=== PATIENT | female | born 1995 | race Two or more races ===

== ENCOUNTER 2018-04-18 02:52 | Emergency (ER) | payer OTHER ==
--- NOTE | 2018-04-18 03:33 | EDPHY ---
H & P Stated Complaint: pelvic pain, heavy bleeding Time Seen by Provider: 04/18/18 03:25 HPI/ROS: Chief Complaint: Pelvic pain, vaginal bleeding HPI: 22-year-old G0 woman who is presenting with left-sided pelvic pain which has been going on for the last couple of weeks. She she has seen her primary care doctor who has scheduled an ultrasound for 2 days to evaluate for possible ovarian cyst. She has had negative tests at home. She started having some vaginal bleeding yesterday. It is as heavy as a heavy stay of her normal cycle. Her last menstrual cycle was the of last month. No other vaginal discharge. Some urinary frequency. No fevers or chills. No back pain. No nausea or vomiting. Pain right now is about a 4/10. She did take some ibuprofen earlier with some relief. ROS: 10 systems were reviewed and were negative except those elements noted in the HPI. PMH: Bipolar disorder Social History: No smoking, occasional alcohol, occasional marijuana Family History: non-contributory Physical Exam: Gen: Awake, Alert, No Distress HEENT: Nose: no rhinorrhea Eyes: PERRLA, EOMI Mouth: Moist mucosa Neck: Supple, no JVD Chest: nontender, lungs clear to auscultation Heart: S1, S2 normal, no murmur Abd: Soft, mild left adnexal tenderness, no guarding Back: no CVA tenderness, no midline tenderness Ext: no edema, non-tender Skin: no rash Neuro: CN II-XII intact, Sensation grossly intact, Strength 5/5 in bilateral upper and lower extremities - Personal History LMP (Females 10-55): 15-21 Days Ago Current Tetanus Diphtheria and Acellular Pertussis (TDAP): Yes - Medical/Surgical History Hx Asthma: No Hx Chronic Respiratory Disease: No Hx Diabetes: No Hx Cardiac Disease: No Hx Renal Disease: No Hx Cirrhosis: No Hx Alcoholism: No Hx HIV/AIDS: No Hx Splenectomy or Spleen Trauma: No Other PMH: bipolar, IBS - Social History Smoking Status: Never smoked Constitutional: Initial Vital Signs Temperature (C) 36.7 C 04/18/18 02:58 Heart Rate 72 04/18/18 02:58 Respiratory Rate 20 04/18/18 02:58 Blood Pressure 131/83 H 04/18/18 02:58 O2 Sat (%) 98 04/18/18 02:58 O2 Delivery Mode Room Air Allergies/Adverse Reactions: Penicillins Allergy (Verified 04/18/18 02:57) Home Medications: Medication Instructions Recorded Abilify 04/18/18 Trileptal 04/18/18 Medical Decision Making - Diagnostics Imaging Results: Pelvic ultrasound shows a known large 7 cm left ovary which is heterogeneous. There is good catheter blood flow but some decrease in central blood flow. Findings consistent with hemorrhagic cyst versus much less likely torsion. Study interpreted by Dr. Villa. Imaging: Discussed imaging studies w/ call centre supervisor Radiologist ED Course/Re-evaluation: 22-year-old woman presenting with left pelvic pain for the last 2 weeks with pelvic bleeding. She is not . Ultrasound is consistent with left hemorrhagic cyst. I have discussed with JERRICA Cardenas. He agrees that this is consistent with a hemorrhagic cyst. He is recommending outpatient follow-up. He can range to get her seen in the office shortly. I have discussed this with the patient. She is in agreement. She has been provided with discharge instructions and follow-up with OBGYN. - Data Points Laboratory Results: Laboratory Results 04/18/18 03:10 04/18/18 03:10 04/18/18 04/18/18 04/18/18 03:50 03:10 03:10 WBC RBC Hgb Hct MCV MCH MCHC RDW Plt Count MPV Neut % (Auto) Lymph % (Auto) [place] % (Auto) Eos % (Auto) Baso % (Auto) Nucleat RBC Rel Count Absolute Neuts (auto) Absolute Lymphs (auto) Absolute Monos (auto) Absolute Eos (auto) Absolute Basos (auto) Absolute Nucleated RBC Immature Gran % Immature Gran # Sodium 140 mEq/L mEq/L (135-145) Potassium 4.5 mEq/L mEq/L (3.3-5.0) Chloride 107 mEq/L mEq/L (97-110) Carbon Dioxide 25 mEq/l mEq/l (22-31) Anion Gap 8 mEq/L mEq/L (8-16) BUN 18 mg/dL mg/dL (7-23) Creatinine 0.7 mg/dL mg/dL (0.6-1.0) Estimated GFR > 60 Glucose 101 mg/dL H mg/dL (70-100) Calcium 9.7 mg/dL mg/dL (8.5-10.4) Beta HCG, Qual NEGATIVE Urine Color YELLOW Urine Appearance MODERATELY TURBID Urine pH 8.0 H (5.0-7.5) Ur Specific Gabri[place] 1.017 (1.002-1.030) Urine Protein NEGATIVE (NEGATIVE) Urine Ketones NEGATIVE (NEGATIVE) Urine Blood 3+ H (NEGATIVE) Urine Nitrate NEGATIVE (NEGATIVE) Urine Bilirubin NEGATIVE (NEGATIVE) Urine Urobilinogen NEGATIVE EU EU (0.2-1.0) Ur Leukocyte Esterase NEGATIVE (NEGATIVE) Urine RBC Pending Urine WBC Pending Ur Epithelial Cells Pending Urine Glucose NEGATIVE (NEGATIVE) 04/18/18 03:10 WBC 8.81 10^3/uL 10^3/uL (3.80-9.50) RBC 4.39 10^6/uL 10^6/uL (4.18-5.33) Hgb 13.4 g/dL g/dL (12.6-16.3) Hct 40.4 % % (38.0-47.0) MCV 92.0 fL fL (81.5-99.8) MCH 30.5 pg pg (27.9-34.1) MCHC 33.2 g/dL g/dL (32.4-36.7) RDW 12.7 % % (11.5-15.2) Plt Count 227 10^3/uL 10^3/uL (150-400) MPV 10.7 fL fL (8.7-11.7) Neut % (Auto) 61.5 % % (39.3-74.2) Lymph % (Auto) 29.6 % % (15.0-45.0) [place] % (Auto) 7.7 % % (4.5-13.0) Eos % (Auto) 0.6 % % (0.6-7.6) Baso % (Auto) 0.3 % % (0.3-1.7) Nucleat RBC Rel Count 0.0 % % (0.0-0.2) Absolute Neuts (auto) 5.41 10^3/uL 10^3/uL (1.70-6.50) Absolute Lymphs (auto) 2.61 10^3/uL 10^3/uL (1.00-3.00) Absolute Monos (auto) 0.68 10^3/uL 10^3/uL (0.30-0.80) Absolute Eos (auto) 0.05 10^3/uL 10^3/uL (0.03-0.40) Absolute Basos (auto) 0.03 10^3/uL 10^3/uL (0.02-0.10) Absolute Nucleated RBC 0.00 10^3/uL 10^3/uL (0-0.01) Immature Gran % 0.3 % % (0.0-1.1) Immature Gran # 0.03 10^3/uL 10^3/uL (0.00-0.10) Sodium Potassium Chloride Carbon Dioxide Anion Gap BUN Creatinine Estimated GFR Glucose Calcium Beta HCG, Qual Urine Color Urine Appearance Urine pH Ur Specific [place] Urine Protein Urine Ketones Urine Blood Urine Nitrate Urine Bilirubin Urine Urobilinogen Ur Leukocyte Esterase Urine RBC Urine WBC Ur Epithelial Cells Urine Glucose Departure - Departure Disposition: Home, Routine, Self-Care Clinical Impression: Hemorrhagic ovarian cyst Condition: Good Instructions: Ovarian Cyst (ED) Additional Instructions: Follow up with OBGYN doctor in 2-3 days, call later this morning for next available appointment. You can continue alternating acetaminophen with ibuprofen as needed for pain. Return to the emergency department for worsening uncontrolled pain, up nausea vomiting, fevers, chills, or any other concerns. Referrals: Meet Joy MD [Medical Doctor] - As per Instructions
[2018-04-18 03:41] LABS: PLATELET COUNT 227 10^3/uL (150-400)
[2018-04-18 05:22] VITALS: BP 102/54
== END 2018-04-18 05:20 | disposition home or self-care (01) ==
DX: N83.202 Unspecified ovarian cyst, left side (principal)

== ENCOUNTER 2018-04-22 13:36 | Day surgery (SDC) | payer OTHER ==
[2018-04-22] MEDS ORDERED: LR 1,000 ML IV ONE (13:56)
[2018-04-22] MEDS ORDERED: fentaNYL 100 MCG/2 ML INJ IVP PRN (14:18)
[2018-04-22] MEDS ORDERED: SILVER NITRATE APPLICATOR 1 APPL TP ONE (14:24)
[2018-04-22] MEDS ORDERED: BUPIVACAINE 0.25% 30 ML SDV ONE ×2 (14:24→16:23)
[2018-04-22] MEDS ORDERED: EPINEPHrine 1 MG/ML INJ ONE ×2 (14:25→16:23)
--- NOTE | 2018-04-22 15:28 | PDGENHP ---
History & Physical Chief Complaint: Adnexal mass, Left pelvic pain, acute History of Present Illness: Ema was seen in the ER over the weekend and dx'd with large ovarian cyst. Torsion suspected, but flow present in the ER, discharged home with plan to see me as OP. Saw in office on Wed and in quite a bit of pain, discusssed US findings and elected for cystectomy. Added on today. Pertinent Past, Social, Family History: Non-contributory. Relevant Physical Exam: NAD but uncomfortable, RRR, LCTAB. Assessment & Plan Assessment: Preop: DxLS, left ovarian cystectomy, possible salpingo-oophorectomy. - No need for abx. - CBC, Type & screen STAT in PREOP. - Plan is home this evening, observation stay overnight possible. IKER
[2018-04-22] MEDS ORDERED: MIDAZOLAM 2 MG/2 ML VIAL IVP ONE (16:14)
[2018-04-22] MEDS ORDERED: fentaNYL 100 MCG/2 ML INJ ONE ×3 (16:16→18:04)
[2018-04-22] MEDS ORDERED: PROPOFOL 200 MG/20 ML VIAL ONE (16:16)
--- NOTE | 2018-04-22 16:16 | PDANEPAE ---
ANE History of Present Illness pelvic pain for lap ovarian cystectomy ANE Past Medical History - Cardiovascular History Hx Hypertension: No Hx Arrhythmias: No Hx Chest Pain: No Hx Coronary Artery / Peripheral Vascular Disease: No Hx CHF / Valvular Disease: No Hx Palpitations: No - Pulmonary History Hx COPD: No Hx Asthma/Reactive Airway Disease: No Hx Recent Upper Respiratory Infection: No Hx Oxygen in Use at Home: No Hx Sleep Apnea: No - Endocrine History Hx Diabetes: No ANE Review of Systems Review of systems is: negative Review of Systems: - Exercise capacity Exercise capacity: >=4 METS ANE Patient History - Allergies Allergies/Adverse Reactions: Penicillins Allergy (Verified 04/18/18 02:57) - Home Medications Home medications: home medication list seen and reviewed Home Medications: Abilify 04/18/18 [Last Taken 04/20/18] Trileptal 04/18/18 [Last Taken 04/21/18] - NPO status NPO Since - Liquids (Date): 04/22/18 NPO Since - Liquids (Time): 11:00 NPO Since - Solids (Date): 04/21/18 NPO Since - Solids (Time): 21:00 - Anes Hx Anes Hx: no prior problems - Smoking Hx Smoking Status: Never smoked ANE Labs/Vital Signs - Vital Signs Blood Pressure: 107/61 Heart Rate: 51 Respiratory Rate: 16 O2 Sat (%): 97 Height: 172.72 cm Weight: 72.575 kg ANE Physical Exam - Airway Neck exam: FROM Mallampati Score: Class 1 Mouth exam: normal dental/mouth exam - Pulmonary Pulmonary: no respiratory distress - Cardiovascular Cardiovascular: regular rate and rhythym - ASA Status ASA Status: II ANE Anesthesia Plan Anesthesia Plan: general endotracheal anesthesia
[2018-04-22] MEDS ORDERED: LIDOCAINE 2% 2 ML INJ ONE ×2 (16:17)
[2018-04-22] MEDS ORDERED: ONDANSETRON 4 MG/2 ML VIAL ONE (16:22)
[2018-04-22] MEDS ORDERED: SUGAMMADEX SODIUM 200 MG/2 ML VIAL IVP ONE (16:23)
[2018-04-22] MEDS ORDERED: KETOROLAC 30 MG/1 ML SDV ONE (16:23)
[2018-04-22] MEDS ORDERED: DEXAMETHASONE 4 MG/ML VIAL ONE (16:23)
--- NOTE | 2018-04-22 16:48 | POSTANESTH ---
Post Anesthetic Evaluation Cardiovascular Status: Normal, Stable Respiratory Status: Normal, Stable Level of Consciousness/Mental Status: Can Participate in Eval, Mildly Sleepy, Arousable Pain Control: Adequate, Prn Tx Ordered Nausea/Vomiting Control: Adequate, Prn Tx Ordered Complications Possibly Related to Anesthesia: None Noted
[2018-04-22] MEDS ORDERED: DIAZEPAM 5 MG/ML 1 ML SYR IVP PRN (17:21)
[2018-04-22] MEDS ORDERED: HYDROmorphONE/DILAUDID 1 MG/ML INJ IVP PRN (17:21)
[2018-04-22] MEDS ORDERED: ALBUTEROL 3 ML DEYVIAL IH PRN (17:21)
[2018-04-22] MEDS ORDERED: PROMETHAZINE HCL 25 MG/ML INJ IVP PRN (17:21)
[2018-04-22] MEDS ORDERED: oxyCODONE IR 5 MG TAB PO PRN (17:21)
[2018-04-22] MEDS ORDERED: NALOXONE HCL 0.4 MG/ML INJ IVP PRN (17:21)
[2018-04-22] MEDS ORDERED: ACETAMINOPHEN 500 MG TAB PO PRN (17:21)
[2018-04-22] MEDS ORDERED: ONDANSETRON 4 MG/2 ML VIAL IVP PRN (17:21)
[2018-04-22] MEDS ORDERED: LR 500 ML IV PRN (17:21)
[2018-04-22] MEDS ORDERED: METOCLOPRAMIDE 10 MG/2 ML VIAL IVP PRN (17:21)
[2018-04-22] MEDS ORDERED: HYDROCODONE/APAP 5/325 TAB PO PRN (17:21)
[2018-04-22] MEDS: fentaNYL 100 MCG/2 ML INJ IVP PRN ×3 (18:05→18:31)
--- NOTE | 2018-04-22 18:08 | POSTOPPROG ---
Post Op Note Date of Operation: 04/22/18 Surgeon: Meet Joy Production Miner: NIMISHA Tinajero Anesthesiologist: Manolo La Anesthesia: GET(General Endotracheal) Pre-op Diagnosis: Adnexal mass, acute pelvic pain Post-op Diagnosis: Left ovarian cyst, hemorrhagic Procedure: Diagnostic laparoscopy, left ovarian cystectomy Findings: Large, blood-filled cyst within the left ovary - ovary otherwise WNL Inf/Abcess present in the surg proc area at time of surgery?: No EBL: Minimal Total fluids administered: 500 LR Complications: None Specimen(s): Left ovarian cyst
--- NOTE | 2018-04-22 18:11 | SUROPNOTE ---
[facility] Operative Report - Surgery Date of Operation: 04/22/18 Surgeon: Meet Joy Moving Consultant: NIMISHA Tinajero Anesthesiologist: Manolo La Anesthesia: GET(General Endotracheal) Pre-op Diagnosis: Adnexal mass, acute pelvic pain Post-op Diagnosis: Left ovarian cyst, hemorrhagic Procedure: Diagnostic laparoscopy, left ovarian cystectomy Findings: Large, blood-filled cyst within the left ovary - ovary otherwise WNL. Normal uterus, normal right tube and ovary. Normal appendix. Inf/Abcess present in the surg proc area at time of surgery?: No EBL: Minimal Total fluids administered: 500 LR Complications: None Specimen(s): Left ovarian cyst Technique: The patient was brought to the operating room where she was ergonomically positioned in low lithotomy position in Kojo stirrups. General anesthesia was established without issue. The arms were tucked at the patients side with care to not generate any pressure points. She was prepped and draped in standard fashion after a time-out was performed. An acorn was placed on the cervix to assist with uterine manipulation. A samuel catheter was placed under sterile conditions. A 10mm vertical incision was made in the inferior aspect of the base of the umbilicus after injection of local anesthetic. The anterior abdominal wall was lifted as the Veress needle was carefully inserted into the abdomen at a 45% angle from vertical. Intraabdominal placement was confirmed with hanging drop test and low initial insufflation pressures. Once the abdomen was adequately insufflated with CO2 gas the Veress was removed and a 10mm non-bladed trocar was introduced into the abdomen without complication. Camera inserted and once inside a brief scan of the abdomen revealed no injuries upon entry. At this point 2 additional 5mm ports were placed in the bilateral lower quadrants after injection of local. Additional pictures were taken of intra-abdominal organs/structures as noted in findings. The left ovary and associated cyst were elevated, inspected, and ultimatley opened/punctured, spilling thin bloody fluid into pelvis. This was removed via suction. Grasper introduced into cyst cavity and seemingly entire cyst was apparatus was easily removed with one pull. Additional time spent removed pieces of cyst wall from the cyst cavity. Small oozing from cyst wall treated with Uriel. The 10mm umbilical fascial defect was closed laparoscopically with 0-vicryl, single suture. All trocars were removed, gas was allowed to escape the abdomen, and skin incisions closed with single subcuticular stitches of 4-0 monocryl and then covered with Dermabond. The pt was extubated uneventfully and taken to the PACU in stable condition. Lap, needle and instrument counts were announced as correct at the conclusion of the case. I was scrubbed and present for the entire procedure.
[2018-04-22] MEDS ORDERED: oxyCODONE IR 5 MG TAB ONE (18:47)
[2018-04-22] MEDS ORDERED: ACETAMINOPHEN 500 MG TAB ONE (18:47)
[2018-04-22 19:57] VITALS: BP 103/65
== END 2018-04-22 20:05 | disposition home or self-care (01) ==
LOC: FSGY 13:36
PROVIDERS: ATTEND Obstetrics & Gynecology
PROC: 0UB04ZZ Excision of Right Ovary, Percutaneous Endoscopic Approach (ICD-10-PCS; principal; 2018-04-22 16:00)
DX: N83.202 Unspecified ovarian cyst, left side (principal)
CPT/HCPCS: J0171; J1100; J1885; J2250; J2405; J2704; J3010

== ENCOUNTER 2018-05-01 14:20 | Emergency (ER) | payer OTHER ==
--- NOTE | 2018-05-01 15:11 | EDPHY ---
H & P Stated Complaint: 04/22 lap/ovarian cyst surg/has felt dizzy since/tirred Time Seen by Provider: 05/01/18 15:03 HPI/ROS: CHIEF COMPLAINT: Lightheadedness HISTORY OF PRESENT ILLNESS: The patient is a 22-year-old female who is seen here on the of this month and diagnosed with a large ovarian cyst 6 x 3 x 2 cm. On the she had a cystectomy a laparoscopic procedure by Ob. She states that ever since the surgery she has felt lightheaded particularly when standing up. She states that her symptoms are worse in the morning. She denies abdominal pain. No fever. No vaginal bleeding or discharge. No urinary symptoms. No chest pain or shortness of breath. No nausea vomiting. No fever. No palpitations Severity: Moderate Modifying factors: Positional REVIEW OF SYSTEMS: Constitutional: denies: chills, fever, recent illness, recent injury EENTM: denies: blurred vision, double vision, nose congestion Respiratory: denies: cough, shortness of breath Cardiac: See HPI Gastrointestinal/Abdominal: denies: abdominal pain, diarrhea, nausea, vomiting, blood streaked stools Genitourinary: denies: dysuria, frequency, hematuria, pain Musculoskeletal: denies: joint pain, muscle pain Skin: denies: lesions, rash, jaundice, bruising Neurological: denies: headache, numbness, paresthesia, tingling, dizziness, weakness Hematologic/Lymphatic: denies: blood clots, easy bleeding, easy bruising Immunologic/allergic: denies: HIV/AIDS, transplant 10 systems reviewed and negative except as noted EXAM: GENERAL: Well-appearing, well-nourished and in no acute distress. HEAD: Atraumatic, normocephalic. EYES: Pupils equal round and reactive to light, extraocular movements intact, sclera anicteric, conjunctiva are normal. ENT: TMs normal, nares patent, oropharynx clear without exudates. Moist mucous membranes. NECK: Normal range of motion, supple without lymphadenopathy or JVD. LUNGS: Breath sounds clear to auscultation bilaterally and equal. No wheezes rales or rhonchi. HEART: Regular rate and rhythm without murmurs, rubs or gallops. ABDOMEN: Surgical wounds clean dry and intact, Soft, nontender, normoactive bowel sounds. No guarding, no rebound. No masses appreciated. BACK: No CVA tenderness, no spinal tenderness, step-offs or deformities EXTREMITIES: Normal range of motion, no pitting or edema. No clubbing or cyanosis. NEUROLOGICAL: Cranial nerves II through XII grossly intact. Normal speech, normal gait. 5/5 strength, normal movement in all extremities, normal sensation , normal reflexes PSYCH: Normal mood, normal affect. SKIN: Warm, dry, normal turgor, no visible rashes or lesions. Source: Patient Exam Limitations: No limitations - Personal History LMP (Females 10-55): 1-7 Days Ago Current Tetanus Diphtheria and Acellular Pertussis (TDAP): Yes - Medical/Surgical History Hx Asthma: No Hx Chronic Respiratory Disease: No Hx Diabetes: No Hx Cardiac Disease: No Hx Renal Disease: No Hx Cirrhosis: No Hx Alcoholism: No Hx HIV/AIDS: No Hx Splenectomy or Spleen Trauma: No Other PMH: bipolar, IBS - Family History Significant Family History: No pertinent family hx - Social History Smoking Status: Never smoked Alcohol Use: Sober Drug Use: None Constitutional: Initial Vital Signs Temperature (C) 36.4 C 05/01/18 14:31 Heart Rate 92 05/01/18 14:31 Respiratory Rate 17 05/01/18 14:31 Blood Pressure 117/73 05/01/18 14:31 O2 Sat (%) 97 05/01/18 14:31 O2 Delivery Mode Room Air Allergies/Adverse Reactions: Penicillins Allergy (Verified 05/01/18 14:30) Home Medications: Medication Instructions Recorded Abilify 04/18/18 Trileptal 04/18/18 LaMICtal 05/01/18 Medical Decision Making - Diagnostics EKG Interpretation: An EKG obtained and was read and documented in trace view. Please see trace view for full reading and report. Sinus rhythm, no acute ischemic changes ED Course/Re-evaluation: 4:45 p.m. we discussed the patient's test results. She is not orthostatic. Her vital signs have been stable here. No abdominal tenderness. No recent fevers or illness. We discussed good hydration and calorie intake. She would prefer to go home now. She declines further workup or testing. She will follow up with her primary doctor. We discussed indications for returning. She states that she has not had any urinary symptoms. Differential Diagnosis: Partial list of the Differential diagnosis considered include but were not limited to; anemia, presyncope, dehydration, hypoglycemia and although unlikely based on the history and physical exam, I also considered , hemorrhage, abdominal infection, urine infection. I discussed these differential diagnoses and the plan with the patient as well as the usual and expected course. The [patient understands] that the diagnosis is provisional and that in medicine we are not always correct and that further workup is often warranted. Usual and customary warnings were given. All of the [patient's] questions were answered. The [patient was] instructed to return to the emergency department should the symptoms at all worsen or return, otherwise to followup with the physician as we discussed. - Data Points Laboratory Results: Laboratory Results 05/01/18 14:40 05/01/18 14:40 05/01/18 05/01/18 05/01/18 14:40 14:40 14:40 WBC 8.84 10^3/uL 10^3/uL (3.80-9.50) RBC 4.93 10^6/uL 10^6/uL (4.18-5.33) Hgb 15.0 g/dL g/dL (12.6-16.3) Hct 44.4 % % (38.0-47.0) MCV 90.1 fL fL (81.5-99.8) MCH 30.4 pg pg (27.9-34.1) MCHC 33.8 g/dL g/dL (32.4-36.7) RDW 12.9 % % (11.5-15.2) Plt Count 333 10^3/uL 10^3/uL (150-400) MPV 10.0 fL fL (8.7-11.7) Neut % (Auto) 65.5 % % (39.3-74.2) Lymph % (Auto) 25.2 % % (15.0-45.0) [place] % (Auto) 8.4 % % (4.5-13.0) Eos % (Auto) 0.5 % L % (0.6-7.6) Baso % (Auto) 0.2 % L % (0.3-1.7) Nucleat RBC Rel Count 0.0 % % (0.0-0.2) Absolute Neuts (auto) 5.79 10^3/uL 10^3/uL (1.70-6.50) Absolute Lymphs (auto) 2.23 10^3/uL 10^3/uL (1.00-3.00) Absolute Monos (auto) 0.74 10^3/uL 10^3/uL (0.30-0.80) Absolute Eos (auto) 0.04 10^3/uL 10^3/uL (0.03-0.40) Absolute Basos (auto) 0.02 10^3/uL 10^3/uL (0.02-0.10) Absolute Nucleated RBC 0.00 10^3/uL 10^3/uL (0-0.01) Immature Gran % 0.2 % % (0.0-1.1) Immature Gran # 0.02 10^3/uL 10^3/uL (0.00-0.10) Sodium 140 mEq/L mEq/L (135-145) Potassium 4.6 mEq/L mEq/L (3.3-5.0) Chloride 105 mEq/L mEq/L (97-110) Carbon Dioxide 23 mEq/l mEq/l (22-31) Anion Gap 12 mEq/L mEq/L (8-16) BUN 16 mg/dL mg/dL (7-23) Creatinine 0.7 mg/dL mg/dL (0.6-1.0) Estimated GFR > 60 Glucose 80 mg/dL mg/dL (70-100) Calcium 10.1 mg/dL mg/dL (8.5-10.4) Beta HCG, Qual NEGATIVE Medications Given: Discontinued Medications Sodium Chloride (Ns) 1,000 mls @ 0 mls/hr IV EDNOW ONE; Wide Open PRN Reason: Protocol Stop: 05/01/18 15:09 Last Admin: 05/01/18 15:21 Dose: 1,000 mls Departure - Departure Disposition: Home, Routine, Self-Care Clinical Impression: Pre-syncope Condition: Fair Instructions: Lightheadedness (ED) Referrals: MEG BARTON [Primary Care Provider] - 2-3 days, call for appt.
--- NOTE | 2018-05-01 15:12 | CPEKG ---
Test Reason : OPEN Blood Pressure : / mmHG Vent. Rate : 066 BPM Atrial Rate : 067 BPM P-R Int : 139 ms QRS Dur : 079 ms QT Int : 415 ms P-R-T Axes : 064 074 060 degrees QTc Int : 435 ms Sinus rhythm Confirmed by Aidan Nance ([id number]), scientific editor Yuan Dunne ([id number]) on 05/01/2018 3:12:13 PM Referred By: Confirmed By:Aidan Nance
[2018-05-01 15:14] LABS: PLATELET COUNT 333 10^3/uL (150-400)
[2018-05-01] MEDS: NS 1,000 ML IV ONE (15:21)
[2018-05-01 16:55] VITALS: BP 100/66
== END 2018-05-01 16:56 | disposition home or self-care (01) ==
DX: R55 Syncope and collapse (principal)

== ENCOUNTER 2018-08-31 15:16 | Emergency (ER) | payer OTHER ==
[2018-08-31 15:26] VITALS: BP 129/98
== END 2018-08-31 19:57 | disposition left against medical advice (07) ==
DX: Z53.21 Procedure and treatment not carried out due to patient leaving prior to being seen by health care provider (principal)